=== PATIENT | male | born 1975 | race Caucasian/White ===

== ENCOUNTER → 2020-07-19 | Outpatient (CLI) | payer OTHER ==
--- NOTE | 2020-07-19 16:33 | CONS ---
CONSULTATION DATE OF SERVICE: 07/19/2020 This patient is a 44-year-old gentleman who has been evaluated in the sleep center for obstructive sleep apnea-hypopnea syndrome. HISTORY OF PRESENT ILLNESS/SLEEP-WAKE EVALUATION: This patient has had a history of obstructive sleep apnea for many years and he is on treatment with CPAP. He continues to use his CPAP equipment every night, but recently he developed snoring during sleep and possibly episodes of stopped breathing during sleep while he is using his CPAP equipment. His sleep schedule is from 8:30 p.m. to 3:30 a.m. on working days and from 8:30 p.m. to 5:30 a.m. on weekends. No problem with falling asleep, although he has a TV set in the bedroom. He usually sleeps on the back position. Recently again while using CPAP, he started to snore and has episodes of stopped breathing and has a dry mouth. He wakes up from sleep two times, with one episode of nocturia. No history of hypnagogic hallucinations, sleep paralysis or cataplexy. In the morning the patient wakes up tired. [place] Sleepiness Scale is 9. Sometimes he takes a nap around 1 or 2 p.m. PAST MEDICAL HISTORY: Positive for hyperlipidemia and symptoms of restless legs, neck and back problems. PAST SURGICAL HISTORY: Cholecystectomy, left knee surgery. MEDICATIONS: Atorvastatin 10 mg once a day, 2 mg once a day, ibuprofen 800 mg once a day. SOCIAL HISTORY: Negative for smoking. Alcohol consumption occasional. FAMILY HISTORY: Cancer in his father acid reflux in grandmother. REVIEW OF SYSTEMS: Snoring, awakenings from sleep while using CPAP. PHYSICAL EXAMINATION: GENERAL: A pleasant gentleman without distress. VITAL SIGNS: BP 140/92, HR 72, RR 15, height 5 feet 9 inches, weight 258, BMI 38.0, temperature 98.0, oxygen saturation at room air 97%. HEENT: PERRLA, EOMI. Evaluation of oropharynx showed tongue protrudes midline. Extremely low position of soft palate. Mallampati IV. NECK: Supple. No JVD. Thyroid is not palpable. Wide neck; 18-1/2 inches in circumference. LUNGS: Clear to percussion and to auscultation. Good air exchange. No wheezing or rhonchi. HEART: S1, S2 regular. No murmurs, gallops or rubs. ABDOMEN: Obese. EXTREMITIES: No clubbing or cyanosis. WORLD HISTORY TEACHER: Awake, alert, and oriented X3. Cranial nerves 2 to 7 intact. There is no fasciculation or atrophy. noted. No focal deficits observed. IMPRESSION: 1. History of obstructive sleep apnea for many years. The patient continues to use CPAP equipment. Reading from the machine showed usage 29/30 nights with average usage 6 hours 36 minutes. CPAP pressure is 16. Machine does not have information about apnea-hypopnea index. 2. Extremely low position of soft palate, wide neck at 18-1/2 inches in circumference; obstructive sleep apnea-hypopnea syndrome. 3. Obesity. BMI 38. 4. Hyperlipidemia. 5. History of restless leg symptoms. 6. Status post cholecystectomy. 7. Status post left knee surgery. 8. Back problems. PLAN: 1. To get results of previous sleep studies. 2. Repeat CPAP titration for re-evaluation of effective CPAP pressure at the present time. 3. Prescription for new CPAP unit after reviewing the above-mentioned results of sleep studies. 4. Losing weight. 5. No driving if feeling sleepiness. Thank you very much for allowing me to participate in the management of your patient. Sincerely, Main Jaime MD, PhD, FAASM Diplomat of [place] [employer] [place] [employer] Phytopathologist of [facility] [place] VEGA / VERN: [id number] /
== END | disposition home or self-care (01) ==
CPT/HCPCS: 99211

== ENCOUNTER → 2020-10-23 | Outpatient (CLI) | payer OTHER ==
--- NOTE | 2020-10-23 16:15 | US ---
EXAMINATION TYPE: US venous doppler duplex LE LT DATE OF EXAM: 10/23/2020 4:04 PM COMPARISON: NONE CLINICAL HISTORY: 44-year-old male I80.9 Phlebitis and thrombophlebitis of unspecified. SIDE PERFORMED: Left TECHNIQUE: The lower extremity deep venous system is examined utilizing real time linear array sonog linh with graded compression, doppler sonography and color-flow sonography. FINDINGS: VESSELS IMAGED: Common Femoral Vein Deep Femoral Vein Greater Saphenous Vein * Femoral Vein Popliteal Vein Small Saphenous Vein * Proximal Calf Veins Posterior tibial veins (* superficial vessels) Left Leg: Negative for DVT, GSV and PTV's also scanned per order. Preliminary results given to Edilma at Dr. Franco's office IMPRESSION: No evidence for DVT within the left lower extremity.
== END | disposition home or self-care (01) ==
LOC: RADUSWWP 15:29
PROVIDERS: ATTEND Orthopaedic Surgery
DX: M25.562 Pain in left knee (principal); M25.462 Effusion, left knee; S83.242D Other tear of medial meniscus, current injury, left knee, subsequent encounter; M17.12 Unilateral primary osteoarthritis, left knee; I80.9 Phlebitis and thrombophlebitis of unspecified site

== ENCOUNTER → 2021-03-06 | Outpatient (CLI) | payer OTHER ==
--- NOTE | 2021-03-06 16:47 | MR ---
EXAMINATION TYPE: MR cervical spine wo con DATE OF EXAM: 03/06/2021 COMPARISON: None HISTORY: Cervicalgia, pain and numbness in hands, arm and neck, pugh CONTRAST: Performed utilizing 0 mL intravenous Gadavist gadolinium contrast. TECHNIQUE: Multiplanar multiecho imaging on a 3.0 Ann magnet is performed through the cervical spin e. FINDINGS: The craniovertebral junction is normal. Vertebral body alignment is normal. C7-T1: No focal disc herniation or significant disc bulge is evident. No spinal canal stenosis or n eural foraminal stenosis is present. C6-7: Mild broad-based disc bulge is present slightly greater to the right paracentral region with mi ld anterior thecal sac compression. No cord contact is evident. Some cord flattening is not excluded. No spinal canal stenosis is present. There is moderate left and [id number] right foraminal s tenosis.. C5-6: There is left paracentral endplate changes and disc protrusion. This is moderate anterior theca l sac compression. No cord contact or spinal canal stenosis is present. Moderate left foraminal steno sis is present. C4-5: There is right paracentral disc herniation with moderate anterior thecal sac compression has co rd contact. Some cord deformity is present. No AP spinal canal stenosis present. Mild right foraminal narrowing is present.. C3-4: Mild broad-based disc bulge is present with minimal anterior thecal sac compression. No spinal canal stenosis is evident. Mild foraminal narrowing is present bilaterally.. C2-3: No focal disc herniation or significant disc bulge is evident. No spinal canal stenosis or diana ral foraminal stenosis is present. IMPRESSIONS: 1. Right paracentral disc herniation C4-5 with moderate anterior thecal sac impression and cord conta ct without cord deformity. 2. Broad-based disc bulge C6-7 may have some mild anterior cord flattening. 3. Endplate changes and disc protrusion in the left paracentral region at C5-6 with moderate anterior thecal sac compression. No stenosis. 4. Multilevel foraminal narrowing due to uncovertebral joint hypertrophy
== END | disposition home or self-care (01) ==
LOC: RADMRIMAIN 12:01
DX: M50.221 Other cervical disc displacement at C4-C5 level (principal)
CPT/HCPCS: 72141

== ENCOUNTER → 2021-05-07 | Outpatient (CLI) | payer OTHER ==
--- NOTE | 2021-05-07 14:28 | MR ---
EXAMINATION TYPE: MR knee LT wo con DATE OF EXAM: 05/07/2021 COMPARISON: Outside left knee x-ray April 15, 2021 HISTORY: L knee pain, Hx of prior surgery TECHNIQUE: Multiplanar, multisequence imaging of the left knee is performed without IV contrast. FINDINGS: MEDIAL MENISCUS: Prominent medial protrusion of medial meniscus coronal images. Vertical tear posteri or horn medial meniscus sagittal image 29. LATERAL MENISCUS: Anterior and posterior horns are intact without tear. CRUCIATE LIGAMENTS: The anterior and posterior cruciate ligaments are intact and unremarkable. COLLATERAL LIGAMENTS: The medial collateral ligament and lateral collateral ligament complex are inta ct and unremarkable. EXTENSOR MECHANISM: Visualized quadriceps and patellar tendons are intact. EFFUSION: Moderate to large size suprapatellar joint effusion. POPLITEAL CYST: No popliteal/zhu cyst. TRICOMPARTMENT SPACES: Moderate to severe narrowing with moderate spurring medial tibiofemoral compar tment is somewhat prominent for patient's age. Mild to moderate narrowing and spurring patellofemoral compartment. Relative preservation of lateral tibiofemoral compartment. CARTILAGE: Cartilaginous loss and fissuring medial tibiofemoral compartment. No significant chondroma lacia patella. BONE MARROW SIGNAL: Heterogeneous diminished T1 and increased T2 signal distal femoral condyle and ep iphysis. OTHER: No additional significant abnormality is appreciated. IMPRESSION: 1. Moderate to severe degenerative changes medial tibiofemoral compartment as detailed above quite pr ominent for patient's chronologic age. 2. Vertical full thickness tear posterior horn medial meniscus. 3. Moderate to large-size suprapatellar joint effusion.
== END | disposition home or self-care (01) ==
LOC: RADMRIMAIN 12:47
PROVIDERS: ATTEND Orthopaedic Surgery
DX: S83.241A Other tear of medial meniscus, current injury, right knee, initial encounter (principal); X58.XXXA Exposure to other specified factors, initial encounter

== ENCOUNTER → 2021-07-16 | Outpatient (CLI) | payer OTHER | END | disposition home or self-care (01) | LOC: LABPAT 14:18 | PROVIDERS: ATTEND Orthopaedic Surgery | DX: Z01.810 Encounter for preprocedural cardiovascular examination (principal) | CPT/HCPCS: 93005 ==

== ENCOUNTER 2021-07-19 10:45 | Day surgery (SDC) | payer OTHER ==
[2021-07-15 09:04] VITALS: BMI 41.0
--- NOTE | 2021-07-18 10:55 | HP ---
HISTORY AND PHYSICAL CHIEF COMPLAINT: Left knee pain. HISTORY OF PRESENT ILLNESS: The patient is a 45-year-old male who presents with progressive left knee pain for the past several years, worsening recently. He notes medial pain along with swelling that is worse with weightbearing activities. He notes buckling and locking in addition to nighttime symptoms. He has tried medications in addition to an injection, with minimal relief. He had a previous arthroscopy in 2004. PAST MEDICAL HISTORY: Otherwise significant for hypercholesterolemia. PAST SURGICAL HISTORY: Significant for cholecystectomy and left knee arthroscopy. CURRENT MEDICATIONS: Atorvastatin, cyclobenzaprine and ibuprofen. ALLERGIES: BEE POLLEN. FAMILY HISTORY: Significant for cancer. SOCIAL HISTORY: Negative for current tobacco or alcohol use. REVIEW OF SYSTEMS: Sixteen-point review of systems otherwise reviewed and is noncontributory. PHYSICAL EXAMINATION: On examination, the patient is approximately 5 feet 8 inches, 261 pounds of endomorphic habitus. HEENT exam is nonfocal. Neck is supple. He has painless passive motion of the left hip. Straight-leg raise is negative. Active motion of the left knee: Minus 12 to 115 degrees of flexion. He has a large effusion. He is tender about the medial joint line. Collaterals are stable, Pilo is negative, Frankie's elicits medial pain. He does have an antalgic gait pattern. His distal neurovascular exam appears intact in the left lower extremity. MRI report left knee 05/07/2021 shows evidence of a posteromedial meniscal tear along with medial compartment degenerative changes. IMPRESSION: 1. Left knee internal derangement with symptomatic medial meniscal tear. 2. Left knee moderate medial compartment osteoarthrosis. 3. Increased body mass index. RECOMMENDATIONS: I talked to the patient at length regarding his condition along with treatment options. At this point he is having persistent pain and mechanical symptoms that limit him despite conservative measures. After thorough discussion, he opts to proceed with surgery. We will plan to do arthroscopic evaluation of his left knee with probable partial medial meniscectomy. We will likely perform that as an outpatient procedure. MMODL / IJN: [id number] /
[~2021-07-19 10:45] MED LIST: DEXAMETHASONE SOD PHOSPHATE 4 MG/ML 1 ML VIAL IV ONE; LACTATED RINGERS 1,000 ML IV SCH; LIDOCAINE 1% (10MG/ML) FOR IV START INTRADERMA PRN; MIDAZOLAM 2 MG/2 ML VIAL IV PRN; ONDANSETRON 4 MG/2 ML VIAL IVP ONE; ceFAZolin 3 GM in SODIUM CHLORIDE 0.9% 100 ML IVPB PRN
[2021-07-19] MEDS ORDERED: fentaNYL (PF) 50 MCG/ML 2 ML AMP ONE (11:58)
[2021-07-19] MEDS ORDERED: PROPOFOL 10 MG/ML 20 ML VIAL IV ONE (11:58)
[2021-07-19] MEDS ORDERED: LIDOCAINE 1% INJ 10MG/ML (20 ML MDV) ONE (11:58)
[2021-07-19] MEDS ORDERED: MIDAZOLAM 2 MG/2 ML VIAL ONE (11:58)
[2021-07-19] MEDS ORDERED: SUCCINYLCHOLINE CHLORIDE VIAL 200 MG/10 ML VIAL IV ONE (11:58)
[2021-07-19] MEDS ORDERED: EPINEPHrine (PF) 1 ML in SODIUM CHLORIDE 0.9% IRRIGATIO 3,000 ML IRRIGATION ONE ×4 (12:02)
--- NOTE | 2021-07-19 12:52 | P.OP ---
Date of Procedure: 07/19/21 Preoperative Diagnosis: Left knee internal derangement Postoperative Diagnosis: Left knee posterior medial meniscal tear/posterior lateral meniscal tear/grade 34 chondral injury posterior medial femoral condyle Procedure(s) Performed: Left knee arthroscopic partial medial meniscectomy/partial lateral meniscectomy/heel femoral chondrectomy Anesthesia: RIMAA Surgeon: Cheo Newman Estimated Blood Loss (ml): 10 Pathology: none sent Condition: stable Disposition: PACU Indications for Procedure: The patient's 45-year-old male presents with progressive left knee pain and mechanical symptoms despite conservative measures. A discussion of the risks and benefits of operative intervention versus continued conservative measures was made with patient. He opted proceed with surgery. Operative risks to include infection, neurovascular injury, development of blood clots, possible incomplete resolution of symptoms, possible worsening symptoms and need for subsequent procedures was discussed. Informed consent was obtained. Operative Findings: As below Description of Procedure: The patient was brought to the operating room, and after induction of general anesthesia examined the left knee. Collaterals were stable, Pilo was negative, and posterior drawer was negative. The left lower extremity was prepped and draped in a normal fashion. A superior lateral portal was made through a 3 mm skin incision superior and lateral to the patella. This was used for outflow. A lateral portal was made through a 5 mm vertical skin incision lateral to the patella tendon above the joint line. Diagnostic arthroscopy was performed. On inspection of the medial compartment, a complex tear involving the posterior horn of the medial meniscus in the white-red junction was noted. This was debrided back to stable base with straight baskets and a motorized shaver. A grade 3-4 chondral defect was noted involving the posterior aspect of the medial femoral condyle. There was a small loose chondral fragment was debrided back to a stable base with a motorized shaver. On inspection of the notch, the anterior cruciate ligament appeared to be intact. On inspection of the lateral compartment, a radial tear involving the posterior to middle one third of the lateral meniscus was noted in the white-white junction. On inspection of the patellofemoral articulation, mild degenerative changes were noted diffusely. The gutters were clear debris. The knee was then thoroughly irrigated. The portals were closed with Steri-Strips. A sterile dressing was applied in addition to a compression stocking. The patient was awoken from general anesthesia and transferred to recovery room in good condition. Blood loss was estimated at 10 mL. No complications were incurred.
[2021-07-19 13:05] VITALS: RESP 16; TEMP 97
[2021-07-19] MEDS: HYDROmorphone 0.5 MG/0.5 ML SYRINGE IVP PRN ×2 (13:08→13:16)
[2021-07-19] MEDS ORDERED: KETOROLAC 15 MG/ML 1 ML VIAL IVP ONE (13:21)
[2021-07-19] MEDS ORDERED: HYDROcodone/APAP 5-325MG 1 EACH TAB ONE (14:17)
[2021-07-19] MEDS ORDERED: HYDROcodone/APAP 5-325MG 1 EACH TAB PO ONE (14:19)
[2021-07-19 14:56] VITALS: BP 127/82; PULSE 82
== END 2021-07-19 15:38 | disposition home or self-care (01) ==
LOC: OR 10:45
PROVIDERS: ATTEND Orthopaedic Surgery
DX: M23.92 Unspecified internal derangement of left knee (principal); S83.242A Other tear of medial meniscus, current injury, left knee, initial encounter; S83.282A Other tear of lateral meniscus, current injury, left knee, initial encounter; E78.00 Pure hypercholesterolemia, unspecified
CPT/HCPCS: 29881; J2250; J0330; J1100; J0690; J2405; J0171; J2001; J3010; J1885; J2704; J1170

== ENCOUNTER → 2022-01-22 | Outpatient (CLI) | payer OTHER ==
--- NOTE | 2022-01-23 05:11 | MR ---
EXAMINATION TYPE: MR lumbar spine wo con DATE OF EXAM: 01/22/2022 COMPARISON: None HISTORY: Lower back pain that travels down the left thigh x20 years Multiplanar multi echo imaging of the lumbar spine with no contrast. The lumbar vertebra have normal alignment. Disc Spaces are fairly normal. No compression fracture. No spinal stenosis. Lumbar nerve roots appear normal. The neural foramina are widely patent. No lumbar paraspinal mass. The sacroiliac joints appear normal. No bone edema. The posterior elements appear no rmal. No subluxation. IMPRESSION: MRI scan of the lumbar spine is normal for age.
== END | disposition home or self-care (01) ==
LOC: RADMRIMAIN 17:18
DX: M54.50 Low back pain, unspecified (principal)
CPT/HCPCS: 72148

== ENCOUNTER → 2023-06-23 | Outpatient (CLI) | payer OTHER ==
--- NOTE | 2023-06-23 15:03 | XR ---
EXAMINATION TYPE: XR cervical spine comp DATE OF EXAM: 06/23/2023 COMPARISON: NONE HISTORY: Pain TECHNIQUE: Four views are submitted. FINDINGS: The odontoid is intact. There are no compression deformities. The prevertebral soft tissue structur es are within normal limits. Hypertrophic and degenerative change of the spine particularly noted at C4-5, C5-6 and C6-C7. Slight grade 1 anterolisthesis C2-C3. This corrects on extension views submitt ed. There also is a slight anterolisthesis of C3-C4. IMPRESSION: 1. Multilevel hypertrophic and degenerative changes.
--- NOTE | 2023-06-23 15:13 | XR ---
EXAM TYPE: LUMBAR SPINE X RAY SERIES COMPARISON: NONE HISTORY: Pain TECHNIQUE: 7 views are submitted including flexion and extension views. FINDINGS: Alignment is anatomic. The pedicles are intact. The transverse processes are intact. There is no s pondylolisthesis. Mild degenerative disc disease levels L3-S1 most marked at L4-L5. IMPRESSION: 1. Multilevel mild degenerative disc disease..
== END | disposition home or self-care (01) ==
LOC: RADCTMAIN 13:46
PROVIDERS: ATTEND Neurological Surgery
DX: M51.16 Intervertebral disc disorders with radiculopathy, lumbar region (principal); M50.10 Cervical disc disorder with radiculopathy, unspecified cervical region; M47.22 Other spondylosis with radiculopathy, cervical region
CPT/HCPCS: 72050; 72110; 72125; 72131